=== PATIENT | female | born 1955 ===

== ENCOUNTER 2017-10-13 16:33 | Emergency (ER) | payer OTHER, MEDICAID ==
[2017-10-13] MEDS ORDERED: Lidocaine 2% w Epi 1:100,000 Inj IJ STA (16:50)
[2017-10-13] MEDS ORDERED: Tdap Vaccine 0.5 ml Vial (10-64 yrs) IM ONE ×2 (16:50→18:09)
--- NOTE | 2017-10-13 16:58 | C.PDOC ---
Time Seen by Provider: 10/13/17 16:49 Chief Complaint (Nursing): Abnormal Skin Integrity Past Medical History Vital Signs: Last Vital Signs Temp 98.4 F 10/13/17 16:46 Pulse 82 10/13/17 16:46 Resp 18 10/13/17 16:46 BP 118/78 10/13/17 16:46 Pulse Ox 99 10/13/17 16:46 ED Course And Treatment O2 Sat by Pulse Oximetry: 99 Disposition - Disposition
--- NOTE | 2017-10-13 17:01 | C.PDOC ---
History Of Present Illness 61 year old female presents to the emergency department with complaints of a laceration to the right lower leg prior to arrival. Patient states she was in a store when she accidentally walked into a bed display which was on a covered metal frame. Patient states that she did not see the metal. She denies other injuries. Time Seen by Provider: 10/13/17 16:49 Chief Complaint (Nursing): Abnormal Skin Integrity History Per: Patient History/Exam Limitations: no limitations Onset/Duration Of Symptoms: Hrs Current Symptoms Are (Timing): Still Present Location Of Injury: Right: Leg Quality Of Symptoms: Other (laceration) Past Medical History Reviewed: Historical Data, Nursing Documentation, Vital Signs Vital Signs: Last Vital Signs Temp 98.4 F 10/13/17 16:46 Pulse 82 10/13/17 16:46 Resp 18 10/13/17 16:46 BP 118/78 10/13/17 16:46 Pulse Ox 99 10/13/17 17:05 - Medical History PMH: No Chronic Diseases Surgical History: No Surg Hx Family History: States: No Known Family Hx - Social History Hx Alcohol Use: Yes Hx Substance Use: No - Immunization History Hx Tetanus Toxoid Vaccination: No Hx Influenza Vaccination: No Review Of Systems Except As Marked, All Systems Reviewed And Found Negative. Musculoskeletal: Positive for: Leg Pain (right lower leg) Skin: Positive for: Other (laceration to the right lower leg) Neurological: Negative for: Weakness, Numbness Physical Exam - Physical Exam Appears: Non-toxic, No Acute Distress Skin: Warm, Dry Head: Atraumatic, Normacephalic Eye(s): bilateral: Normal Inspection Neck: Normal, Supple Chest: Symmetrical Cardiovascular: Rhythm Regular Respiratory: Normal Breath Sounds Extremity: Normal ROM, Other (7cm linear laceration to the anterior right mid leg, no other injuries, minimal active bleeding, no foreign body present. ) Neurological/Psych: Oriented x3 ED Course And Treatment O2 Sat by Pulse Oximetry: 99 (RA) Pulse Ox Interpretation: Normal Progress Note: Plan: Adacel 0.5ml IM. Motrin 600mg PO. Tylenol 975mg PO. Xylocaine 2% with Epi. Laceration Repair Laceration - Laceration Repair No standard instances Wound Length (In cm): 7 Description Of Wound: Linear, Clean Wound Cleansed With: Betadine Anesthesia: Lidocaine 1%, With Epi Wound Examination: Irrigated With Saline, No FB With Wound Exploration Wound Closure: Suture Suture Technique And Material Used: Prolene (2.0 x 12 ), Vicryl (3.0 x 2) Disposition Counseled Patient/Family Regarding: Diagnosis, Need For Followup - Disposition Referrals: [facility] [Provider Group] Disposition: HOME/ ROUTINE Disposition Time: 18:11 Condition: IMPROVED Additional Instructions: RETURN IN 7-10 DAYS FOR SUTURE REMOVAL. RETURN SOONER IF CONCERN FOR INFECTION. WOUND CARE ADVISED Prescriptions: Bacitracin [Bacitracin Opht OINT] 1 applic OD Q4 #1 tube Instructions: Laceration Repair With Stitches (DC) Forms: [facility] (Lithuanian) - Clinical Impression Clinical Impression: Leg laceration - Scribe Statement The provider has reviewed the documentation as recorded by the Scribe (Mauro Mcclellan) Provider Attestation: All medical record entries made by the Scribe were at my direction and personally dictated by me. I have reviewed the chart and agree that the record accurately reflects my personal performance of the history, physical exam, medical decision making, and the department course for this patient. I have also personally directed, reviewed, and agree with the discharge instructions and disposition.
[2017-10-13] MEDS ORDERED: Lidocaine/Epi 1% 1:100000 20 ML IJ ONE (17:23)
[2017-10-13] MEDS ORDERED: Bacitracin 500 Units/gm Oint Foilpak UD TOP ONE (18:17)
[2017-10-13] MEDS ORDERED: Bacitracin 500 Units/gm Oint Foilpak UD ONE (18:24)
[2017-10-13 18:26] VITALS: BP 136/78; PULSE 75; RESP 20; TEMP 99.3; O2SAT 97
== END 2017-10-13 18:31 | disposition home or self-care (01) ==
LOC: C.ER 16:33
DX: S81.811A Laceration without foreign body, right lower leg, initial encounter (principal); W22.8XXA Striking against or struck by other objects, initial encounter; Z23 Encounter for immunization

== ENCOUNTER 2017-10-14 13:04 | Emergency (ER) | payer MEDICAID, OTHER ==
[2017-10-14 13:12] VITALS: BP 119/79; PULSE 75; RESP 18; TEMP 98.3; O2SAT 99
[2017-10-14] MEDS ORDERED: Bacitracin 500 Units/gm Oint Foilpak UD ONE (13:23)
[2017-10-14] MEDS ORDERED: Bacitracin 500 Units/gm Oint Foilpak UD TOP ONE (13:24)
--- NOTE | 2017-10-14 13:26 | C.PDOC ---
History Of Present Illness 61 year old female presents to the emergency department for wound check. Patient sustained a laceration on her right lower leg yesterday, is s/p laceration repair yesterday. She states the area is painful and has had some mild bleeding. Patient denies fever, sensory changes, purlent discharge. Patient was given Rx for Bacitracin yesterday, which she admits she did not fill because she could not drive to pharmacy. Time Seen by Provider: 10/14/17 13:15 Chief Complaint (Nursing): Wound Check History Per: Patient History/Exam Limitations: no limitations Onset/Duration Of Symptoms: Days Ago Current Symptoms Are (Timing): Still Present Past Medical History Reviewed: Historical Data, Nursing Documentation, Vital Signs Vital Signs: Last Vital Signs Temp 98.3 F 10/14/17 13:09 Pulse 75 10/14/17 13:09 Resp 18 10/14/17 13:09 BP 119/79 10/14/17 13:09 Pulse Ox 99 10/14/17 14:43 Family History: States: No Known Family Hx - Social History Hx Alcohol Use: Yes Hx Substance Use: No - Immunization History Hx Tetanus Toxoid Vaccination: No Hx Influenza Vaccination: No Review Of Systems Constitutional: Negative for: Fever Cardiovascular: Negative for: Chest Pain Respiratory: Negative for: Shortness of Breath Gastrointestinal: Negative for: Nausea, Vomiting Skin: Positive for: Other (laceration on R lower leg) Neurological: Negative for: Weakness, Numbness Physical Exam - Physical Exam Appears: Non-toxic, No Acute Distress Skin: Warm, Dry Head: Atraumatic, Normacephalic Eye(s): bilateral: Normal Inspection Oral Mucosa: Moist Neck: Supple Extremity: No Swelling (of R lower leg), Other (well healing laceration with 12 intact sutures on R lower leg; dry blood at superior aspect; no erythema or purulent discharge) Neurological/Psych: Oriented x3, Normal Speech ED Course And Treatment O2 Sat by Pulse Oximetry: 99 (RA) Pulse Ox Interpretation: Normal Progress Note: Wound was applied with bacitracin and dressed with gauze. Patient was reassured her wound looks fine. Prescriptions were sent to a pharmacy for bacitracin and motrin. Disposition Counseled Patient/Family Regarding: Diagnosis, Need For Followup - Disposition Referrals: Jose Bauman MD [Staff Provider] - Disposition: HOME/ ROUTINE Disposition Time: 13:25 Condition: STABLE Prescriptions: Ibuprofen [Motrin Tab] 600 mg PO Q6 PRN #30 tab PRN Reason: fever/pain Instructions: Wound Care (DC) Forms: [employer] (Turkish) Print Language: YI - Clinical Impression Clinical Impression: Visit for wound check - Scribe Statement The provider has reviewed the documentation as recorded by the Curtisibe Parris Kulkarni Provider Attestation: All medical record entries made by the Curtisibe were at my direction and personally dictated by me. I have reviewed the chart and agree that the record accurately reflects my personal performance of the history, physical exam, medical decision making, and the department course for this patient. I have also personally directed, reviewed, and agree with the discharge instructions and disposition.
== END 2017-10-14 13:59 | disposition home or self-care (01) ==
LOC: C.ER 13:04
DX: Z48.00 Encounter for change or removal of nonsurgical wound dressing (principal)

== ENCOUNTER 2017-10-23 18:25 | Emergency (ER) | payer MEDICARE, MEDICAID ==
[2017-10-23 18:48] VITALS: BP 155/83; PULSE 71; TEMP 97.8; O2SAT 100
--- NOTE | 2017-10-23 18:59 | C.PDOC ---
History Of Present Illness 61 year old female presents to the emergency department for a scheduled suture removal from her right lower leg after sustained laceration and wound was sutured here in ED on 10-13-17. Pt reports some redness around the wound but otherwise denies fever, chills, wound discharge, denies any other active complaints. Ambulate to Ed for evaluation, not in any apparent distress. Time Seen by Provider: 10/23/17 18:46 Chief Complaint (Nursing): Suture/Staple Removal History Per: Patient History/Exam Limitations: no limitations Onset/Duration Of Symptoms: Days Ago (9) Location Of Injury: Right: Leg Quality Of Symptoms: denies: Draining Past Medical History Reviewed: Historical Data, Nursing Documentation, Vital Signs Vital Signs: Last Vital Signs Temp 97.8 F 10/23/17 18:44 Pulse 71 10/23/17 18:44 Resp 20 10/23/17 19:26 BP 155/83 H 10/23/17 18:44 Pulse Ox 100 10/23/17 19:18 - Medical History PMH: Arthritis, Hypercholesterolemia Surgical History: No Surg Hx Family History: States: No Known Family Hx - Social History Hx Alcohol Use: Yes Hx Substance Use: No - Immunization History Hx Tetanus Toxoid Vaccination: Yes Hx Influenza Vaccination: No Review Of Systems Except As Marked, All Systems Reviewed And Found Negative. Constitutional: Negative for: Fever, Chills Skin: Positive for: Other (erythema to wound area, NO discharge. ) Physical Exam - Physical Exam Appears: Well, Non-toxic, No Acute Distress Skin: Normal Color, Warm, Other (well healed laceration to anterior aspect Right lower leg closed with sutures#12, mild erythema around suture line. No edema, no erythema or proximal streaking, No wound discharges.) Head: Normacephalic Extremity: Normal ROM (RLE, no neurovascular deficits), No Tenderness, No Pedal Edema, Capillary Refill (less than 2sec to Right foot), No Deformity, No Swelling Neurological/Psych: Oriented x3, Normal Speech, Normal Motor, Normal Sensation, Normal Reflexes ED Course And Treatment O2 Sat by Pulse Oximetry: 100 Pulse Ox Interpretation: Normal Progress Note: On re-eavl, pt is afebrile, hemodynamicaly stable. Non-toxic, ambulatory in ED with stable gait. RLE: sutures removed completely without difficulty. Wound cleaned, closed with steri-strips, FAROM of RLE, no neurovascular deficits, no evidence of cellulitis. Pt advised on wound care. ref. to f/u with PMD in 2 -3 days for re-eavl. return to ED if any worsening or new changes. Disposition Counseled Patient/Family Regarding: Diagnosis, Need For Followup - Disposition Referrals: Jose Bauman MD [Staff Provider] - Disposition: HOME/ ROUTINE Disposition Time: 19:08 Condition: STABLE Additional Instructions: Keep wound clean, dry Leg elevation Follow up with PMD in 2-3 days for re-evaluation. return if any new changes. Instructions: Stitches Removal Forms: [employer] (Irish) - Clinical Impression Clinical Impression: Removal of suture - PA / CANDY VENDOR / Resident Statement MD/DO has reviewed & agrees with the documentation as recorded. - Scribe Statement The provider has reviewed the documentation as recorded by the Scribe (Mauro Mcclellan) All medical record entries made by the Scribe were at my direction and personally dictated by me. I have reviewed the chart and agree that the record accurately reflects my personal performance of the history, physical exam, medical decision making, and the department course for this patient. I have also personally directed, reviewed, and agree with the discharge instructions and disposition.
[2017-10-23 19:27] VITALS: RESP 20
== END 2017-10-23 19:25 | disposition home or self-care (01) ==
LOC: C.ER 18:25
DX: Z48.02 Encounter for removal of sutures (principal)